=== PATIENT | female | born 1990 | race Caucasian/White ===

== ENCOUNTER 2023-12-17 03:55 | Emergency (ER) | payer BC ==
[~2023-12-17] VITALS: Ht 157.5 cm; Wt 78.3 kg
[~2023-12-17 03:55] MED LIST: CIPR500T39 PO; FLOM0.4C39 PO; HYDR-3713 PO; ONDA4TAB6 PO; REGL5TAB2 PO
[2023-12-17] MEDS: NS 1,000 ML IV ONE (04:20)
[2023-12-17 04:35] LABS: BASO % 0.4 % (0.0-1.0); EOS # 0.1 10^3/uL (0.0-0.5); EOS % 0.9 % (0.0-3.0); HEMATOCRIT 37.4 % (36.0-47.0); HEMOGLOBIN 12.4 g/dl (12.0-15.5); LYMPH # 1.7 10^3/uL (1.5-5.0); LYMPH % 21.1 % (24.0-44.0); MEAN CORPUSCULAR HEMOGLOBIN 30.8 pg (27.0-33.0); MEAN CORPUSCULAR HGB CONC 33.2 g/dl (32.0-36.5); MONO # 0.4 10^3/uL (0.0-0.8); MONO % 4.6 % (2.0-8.0); NEUTROPHILS # 5.8 10^3/uL (1.5-8.5); NEUTROPHILS % 72.7 % (36.0-66.0); PLATELET COUNT, AUTOMATED 207 10^3/uL (150-450); RED BLOOD COUNT 4.02 10^6/uL (4.00-5.40)
[2023-12-17] MEDS: ONDANSETRON 4MG 2ML VIAL IV ONE (04:44)
[2023-12-17] MEDS: KETOROLAC 30 MG/ML 1ML VIAL IV ONE (04:44)
[2023-12-17 05:03] LABS: LIPASE 36 U/L (12-53)
[2023-12-17 05:06] LABS: ALBUMIN 3.9 G/DL (3.2-5.2); ALKALINE PHOSPHATASE 55 U/L (46-116); ALT/SGPT 15 U/L (7.0-40); AST/SGOT 9 U/L (<34); BILIRUBIN,DIRECT 0.2 MG/DL (<0.4); BILIRUBIN,TOTAL 0.5 MG/DL (0.3-1.2); BLOOD UREA NITROGEN 14 MG/DL (9-23); CALCIUM LEVEL 9.6 MG/DL (8.5-10.1); CARBON DIOXIDE LEVEL 28 MMOL/L (20-31); CHLORIDE LEVEL 106 MMOL/L (98-107); CREATININE FOR GFR 0.65 MG/DL (0.55-1.30); GLOMERULAR FILTRATION RATE > 60.0 (>60); GLUCOSE, FASTING 110 MG/DL (60-100); POTASSIUM SERUM 3.3 MMOL/L (3.5-5.1); SODIUM LEVEL 142 MMOL/L (136-145); TOTAL PROTEIN 6.5 G/DL (5.7-8.2)
[2023-12-17 05:10] LABS: HCG, SERUM QUALITATIVE NEGATIVE (NEGATIVE)
[2023-12-17] MEDS ORDERED: KETO10TAB PO (05:55)
[2023-12-17] MEDS ORDERED: FLOM0.4C39 PO (05:55)
[2023-12-17] MEDS ORDERED: ONDA4TAB6 PO (05:55)
[2023-12-17] MEDS: TAMSULOSIN 0.4 MG CAP PO ONE (06:39)
[2023-12-17 07:31] VITALS: BP 109/69; TEMP 100; O2SAT 99
== END 2023-12-17 07:33 | disposition home or self-care (01) ==
LOC: M ED 03:55
DX: N20.1 Calculus of ureter (principal); N13.39 Other hydronephrosis; Z87.442 Personal history of urinary calculi
CPT/HCPCS: 74176; 80048; 80076; 81001; 83690; 84702; 84703; 85025; 93041; 96361; 96374; 96375; 99284; J1885; J2405